=== PATIENT | male | born 1985 | race Caucasian/White ===

== ENCOUNTER 2017-01-08 19:19 | Emergency (ER) | payer MEDICAID, OTHER ==
[~2017-01-08] VITALS: Ht 162.6 cm; Wt 90.0 kg
[2017-01-08 19:22] VITALS: Ht 162.6 cm; Wt 90.0 kg
[2017-01-08] MEDS ORDERED: TETRACAINE 0.5% 4 ML OPH RIGHT EYE SCH (22:00)
[2017-01-08] MEDS ORDERED: FLUORESCEIN STRIP RIGHT EYE ONE (22:00)
[2017-01-08] MEDS ORDERED: DIPHTH/TET/ACEL PERTUSS (ADULT) 0.5 ML VIAL IM* ONE (22:00)
[2017-01-08] MEDS ORDERED: OFLO5DRO46 RIGHT EYE (22:20)
--- NOTE | 2017-01-08 23:46 | ERD ---
ER Documentation Chief Complaint Date/Time DATE: 01/08/17 TIME: 23:42 Chief Complaint foreign body" metal spurks of nail" HPI 31-year-old male patient with no significant past medical history presents to the ED complaining of a metal foreign body that he got in his right eye 3 days ago states that he was using a machine to cut neelima and nails and a piece accidentally got into his right thigh. Reports that he tried to remove the metal eyepiece with a piece of paper. Denies any blurred vision, eye pain, diplopia, photophobia, headache, weakness, numbness or tingling. States that he is not up-to-date with his tetanus vaccine. ROS All systems reviewed and are negative except as per history of present illness. Medications Home Meds Active Scripts Ofloxacin* (Ocuflox*) 0.3%-5 Ml Ophth Drops, 1 DROP RIGHT EYE QID for 7 Days, # 1 BOTTLE Prov:MARISSA JEROME PA-C 01/08/17 Allergies Allergies: Coded Allergies: No Known Allergy (Unverified , 01/08/17) PMhx/Soc Medical and Surgical Hx: pt denies Medical Hx, pt denies Surgical Hx Hx Alcohol Use: No Hx Substance Use: No Hx Tobacco Use: No Smoking Status: Never smoker Physical Exam Vitals Vital Signs Date Time Temp Pulse Resp B/P Pulse Ox O2 Delivery O2 Flow Rate FiO2 01/08/17 19:22 99.1 76 20 159/92 99 Physical Exam Const: Hfx-lyl-[id number], well-nourished. In no acute distress. Head: Atraumatic, normocephalic Eyes: Normal Conjunctiva without injection. No purulent discharge. PERRLA. EOMI. Metal foreign body on right lateral cornea. No edema. ENT: Normal external ear. Ear canal without erythema. Tympanic membrane pearly rosa without effusion or bulging. Nasal canal clear with normal turbinates. Moist oropharynx without tonsillar exudates. Non-erythematous pharynx. Uvula midline. No drooling. No trismus. Neck: No cervical midline tenderness. Full range of motion. No meningismus. No cervical lymphadenopathy. No JVD. Resp: Clear to auscultation bilaterally. No wheezing, rhonchi, rales, or crackles. No accessory muscle use. No retractions. Cardio: Regular rate and rhythm. No murmurs, rubs or gallops. Abd: Soft, non tender, non distended. Normal bowel sounds. No palpable masses. No rebound tenderness. No guarding. Negative McBurney's Point. Negative Martin's Sign. Skin: Normal skin turgor. No petechiae or rashes Back: No midline tenderness. No CVA tenderness. Ext: No cyanosis, or edema. Distal pulses intact bilaterally. Neur: Awake and alert. Normal gait. Normal coordination. Cranial Nerves II- VII intact. Psych: Normal Mood and Affect Results 24 hrs Current Medications Medications (Trade) Dose Ordered Sig/Rosana Route PRN Reason Start Time Stop Time Status Last Admin Dose Admin Tetracaine HCl (Tetracaine 0.5% Steri-Unit Nenita) 1 drop ONCE RIGHT EYE 01/08/17 22:00 01/08/17 22:45 DC Fluorescein Sodium (Prqos-X-Pbyfm) 1 strip ONCE ONCE RIGHT EYE 01/08/17 22:00 01/08/17 22:01 DC Diphtheria/ Tetanus/Acell Pertussis (Adacel) 0.5 ml ONCE ONCE IM* 01/08/17 22:00 01/08/17 22:01 DC 01/08/17 22:19 Procedures/MDM This is a 31-year-old male patient with no significant past medical history presents the ED complaining of a metal foreign body noted on the right side of his eye. Patient is afebrile and nontoxic-appearing. Patient has normal vital signs. Eye Exam w/ Wood's lamp: Visual Acuity: [Bilateral 20/15 R 20/13 L20/15] Visual Grey: Intact in all four quadrants bilaterally Lac ducts/glands: No swelling Lids w/ evertion: Normal, no foreign body Conj/[place]: Clear, negative Fluorescein/Otoniel's Anterior Chamber: Clear Patient's ocular symptoms have stabilized while they have been evaluated in the department and are appropriate for outpatient work up. Patient will be covered for possible corneal abrasion versus ulcer due to the metal foreign body. No attempt was done here in the ED to remove the foreign body as there is epithelium forming over the metal foreign body. Risks outweigh the benefits. He was strictly instructed to follow-up with an umbrella repairer for further evaluation and treatment. Low suspicion for ruptured globe, retinal detachment , periorbital cellulitis, acute angle closure glaucoma, deep space infection, iritis, traumatic hyphema, conjunctivitis, subconjunctival hemorrhage, corneal abrasion, corneal ulcer, pterygium, hypopyon, blepharitis, hordeolum, chalazion , or other emergent conditions. Discharge medications: Ocuflox Strictly instructed patient to follow up with an umbrella repairer within 24 hours. Instructed patient to return to the ED for any worsening symptoms. Patient is hemodynamically stable. Patient's questions were answered. Patient understood and agreed with discharge plan. Departure Diagnosis: Primary Impression: Foreign body in eye Encounter type: initial encounter Laterality: right Qualified Code: T15.91XA - Foreign body in eye, right, initial encounter Condition: Stable Patient Instructions: Foreign Object in the Cornea Referrals: [facility] YOU HAVE RECEIVED A MEDICAL SCREENING EXAM AND THE RESULTS INDICATE THAT YOU DO NOT HAVE A CONDITION THAT REQUIRES URGENT TREATMENT IN THE EMERGENCY DEPARTMENT. FURTHER EVALUATION AND TREATMENT OF YOUR CONDITION CAN WAIT UNTIL YOU ARE SEEN IN YOUR DOCTORS OFFICE WITHIN THE NEXT 1-2 DAYS. IT IS YOUR RESPONSIBILITY TO MAKE AN APPOINTMENT FOR FOLOW-UP CARE. IF YOU HAVE A PRIMARY DOCTOR --you should call your primary doctor and schedule an appointment IF YOU DO NOT HAVE A PRIMARY DOCTOR YOU CAN CALL OUR PHYSICIAN REFERRAL HOTLINE AT IF YOU CAN NOT AFFORD TO SEE A PHYSICIAN YOU CAN CHOSE FROM THE FOLLOWING [facility] [address] [facility] [address] [facility]. [facility] [address] [facility] [address] [facility]. [facility] [address] [facility]. [facility]. [address] [facility] YOU HAVE RECEIVED A MEDICAL SCREENING EXAM AND THE RESULTS INDICATE THAT YOU DO NOT HAVE A CONDITION THAT REQUIRES URGENT TREATMENT IN THE EMERGENCY DEPARTMENT. FURTHER EVALUATION AND TREATMENT OF YOUR CONDITION CAN WAIT UNTIL YOU ARE SEEN IN YOUR DOCTORS OFFICE WITHIN THE NEXT 1-2 DAYS. IT IS YOUR RESPONSIBILITY TO MAKE AN APPOINTMENT FOR FOLOW-UP CARE. IF YOU HAVE A PRIMARY DOCTOR --you should call your primary doctor and schedule and appointment IF YOU DO NOT HAVE A PRIMARY DOCTOR YOU CAN CALL OUR PHYSICIAN REFERRAL HOTLINE AT . IF YOU CAN NOT AFFORD TO SEE A PHYSICIAN YOU CAN CHOSE FROM THE FOLLOWING [facility] INSTITUTIONS: [facility] [address] [place] [address] [facility] [address] [place] [address] [facility] + [facility] [address] [place] [address] [facility] Hours: Mon - Fri 9:00 AM - 5:00 PM Additional Instructions: Seguimiento con un oftalmlogo dentro de las 24 horas para la extraccin del metal en aguilera carolyn y evaluacin adicional y tratamiento. Regrese a estas instalaciones si no se mejora beti esperbamos o beti le dijimos. MARISSA JEROME PA-C Jan 08, 2017 23:46 MARISSA JEROME PA-C Jan 08, 2017 23:46
== END 2017-01-08 22:45 | disposition home or self-care (01) ==
LOC: FTE 19:19
DX: T15.91XA Foreign body on external eye, part unspecified, right eye, initial encounter (principal); W22.8XXA Striking against or struck by other objects, initial encounter; Y92.9 Unspecified place or not applicable; Z23 Encounter for immunization
CPT/HCPCS: 90471; 90715; Z7502; Z7610